=== PATIENT | male | born 1990 | race Caucasian/White ===

== ENCOUNTER 2016-10-10 13:54 | Emergency (ER) | payer SELFPAY ==
[2016-10-10 14:03] VITALS: BP 136/94
[2016-10-10] MEDS ORDERED: Sodium Chloride 0.9% 10 ML Syringe FLUSH PRN (14:31)
[2016-10-10] MEDS ORDERED: LORazepam 2 MG/ML MDV IVPUSH ONE (14:59)
[2016-10-10] MEDS ORDERED: Sodium Chloride 0.9% 1,000 ML IV ONE (15:01)
[2016-10-10] MEDS ORDERED: HYDROmorphone 0.5 MG/0.5 ML Syringe IVPUSH ONE (15:01)
[2016-10-10] MEDS ORDERED: Ondansetron 4 MG/2 ML SDV IVPUSH ONE (15:01)
[2016-10-10] MEDS ORDERED: Iopamidol 612 MG/ML 100 ML Bottle IVPUSH ONE (15:53)
[2016-10-10] MEDS ORDERED: Sodium Chloride 0.9% 10 ML Syringe FLUSH ONE (15:53)
[2016-10-10] MEDS ORDERED: Diatrizoate Meglumine/Diatrizoate Sodium 37% 120 ML Bottle PO ONE (15:53)
--- NOTE | 2016-10-10 16:37 | EDM.PDOC ---
ED HPI GI/ABDOMINAL - General Chief Complaint: Gastrointestinal Problem Stated Complaint: VOMITING Time Seen by Provider: 10/10/16 14:32 Source of Information: Reports: Patient History Limitations: Reports: No limitations - History of Present Illness INITIAL COMMENTS - FREE TEXT/NARRATIVE: Patient presents for evaluation and treatment of abdominal pain, nausea, vomiting and diarrhea. Patient reports that he woke this morning with abdominal pain. States it is located across the top of his abdomen and in the right lower quadrant. He describes it as a sharp sensation. Current symptoms include abdominal pain, nausea, vomiting, lightheadedness, chills and diarrhea. Had about 5 episodes of diarrhea today. No blood in the stool. States that his stool is brown and watery. Reports 3 episodes of vomiting today. He denies any fevers, dysuria, hematuria, melena or hematochezia. Patient denies any surgeries to his abdomen. Patient reports that as a child he had problems with reflux. He was placed on omeprazole. States that this does not feel similar. The patient reports a decreased appetite but states he was able to eat a fruit rope and a fruit snack today. He did vomit these up later. Location: [facility] - Related Data Allergies/ADRs: Allergies Allergy/AdvReac Type Severity Reaction Status Date / Time No Known Allergies Allergy Verified 01/27/14 12:12 Home Meds: Home Meds . [No Known Home Meds] 10/10/16 [History] Past Medical History - Past Health History Medical/Surgical History: Denies Medical/Surgical History Gastrointestinal History: Reports: GERD, Other (see below) Other Gastrointestinal History: lots of stomach issues over the years and ulcers Social & Family History - Tobacco Use Smoking Status *Q: Current Every Day Smoker Years of Tobacco use: 11 Packs/Tins Daily: 2 - Caffeine Use Caffeine Use: Reports: Soda - Recreational Drug Use Recreational Drug Use: No Recreational Drug Type: Reports: Marijuana/Hashish ED ROS GENERAL - Review of Systems Review Of Systems: See Below Constitutional: Reports: fever, chills, diaphoresis, decreased appetite GI/Abdominal: Reports: Abdominal pain, Diarrhea (x5 today), Nausea, Vomiting ( x3 today). Denies: Hematochezia, Melena : Reports: no symptoms, other (denies any groin pain or testicular pain or swelling). Denies: dysuria, hematuria ED EXAM, GI/ABD - Physical Exam Exam: See Below Exam Limited By: No limitations General Appearance: alert, WD/WN, no apparent distress Respiratory/Chest: no respiratory distress, lungs clear, normal breath sounds Cardiovascular: normal peripheral pulses, regular rate, rhythm, no murmur GI/Abdominal: normal bowel sounds, tenderness (periumbilical and RLQ), McBurney' s sign, other (no pain with heel percussion). No: rebound, psoas sign, obturator sign Neurological: alert, oriented, normal cognition Psychiatric: normal affect, normal mood Skin Exam: Warm, Dry, Normal color Course - Vital Signs Last Recorded V/S: Last Vital Signs Temp 36.9 C 10/10/16 14:01 Pulse 72 10/10/16 14:01 Resp 20 10/10/16 14:01 BP 136/94 H 10/10/16 14:01 Pulse Ox 100 10/10/16 14:01 - Orders/Labs/Meds Orders: Active Orders 24 hr Category Date Time Status Peripheral IV Care [RC] . DIRECTED Care 10/10/16 14:31 Active Abdomen Pelvis w Cont [CT] Stat Exams 10/10/16 14:31 Taken Sodium Chloride 0.9% [Saline Flush] Med 10/10/16 14:31 Active 10 ml FLUSH ASDIRECTED PRN Peripheral IV Insertion Adult [OM.PC] Routine Oth 10/10/16 14:31 Ordered Medication Orders Sodium Chloride (Saline Flush) 10 ml FLUSH ASDIRECTED PRN PRN Reason: Keep Vein Open Last Admin: 10/10/16 15:11 Dose: 10 ml Labs: Laboratory Tests 10/10/16 10/10/16 10/10/16 Range/Units 14:50 14:50 16:22 WBC 14.24 H (4.23-9.07) K/mm3 RBC 5.73 (4.63-6.08) M/mm3 Hgb 16.6 (13.7-17.5) gm/L Hct 48.1 (40.1-51.0) % MCV 83.9 (79.0-92.2) fl MCH 29.0 (25.7-32.2) pg MCHC 34.5 (32.2-35.5) g/dl RDW Std Deviation 40.3 (35.1-43.9) fL Plt Count 154 L (163-337) K/mm3 MPV 11.7 (9.4-12.3) fl Neutrophils % (Manual) 75 H (40-60) % Band Neutrophils % 11 H (0-10) % Lymphocytes % (Manual) 8 L (20-40) % Atypical Lymphs % 0 % Monocytes % (Manual) 4 (2-10) % Eosinophils % (Manual) 2 (0.8-7.0) % Basophils % (Manual) 0 L (0.2-1.2) Platelet Estimate Adequate Plt Morphology Comment Normal RBC Morph Comment Normal Sodium 138 (136-145) mEq/L Potassium 3.7 (3.5-5.1) mEq/L Chloride 103 (98-107) mEq/L Carbon Dioxide 27 (21-32) mEq/L Anion Gap 11.7 (5-15) BUN 13 (7-18) mg/dL Creatinine 1.1 (0.7-1.3) mg/dL Est Cr Clr Drug Dosing 97.93 mL/min Estimated GFR (MDRD) > 60 (>60) mL/min BUN/Creatinine Ratio 11.8 L (14-18) Glucose 109 H (74-106) mg/dL Calcium 9.3 (8.5-10.1) mg/dL Total Bilirubin 0.9 (0.2-1.0) mg/dL AST 17 (15-37) U/L ALT 21 (16-63) U/L Alkaline Phosphatase 78 (46-116) U/L C-Reactive Protein 0.2 (<1.0) mg/dL Total Protein 7.6 (6.4-8.2) g/dl Albumin 4.7 (3.4-5.0) g/dl Globulin 2.9 gm/dL Albumin/Globulin Ratio 1.6 (1-2) Lipase 94 (73-393) U/L Urine Color Yellow (Yellow) Urine Appearance Clear (Clear) Urine pH 6.5 (5.0-8.0) Ur Specific [place] 1.020 (1.005-1.030) Urine Protein Negative (Negative) Urine Glucose (UA) Negative (Negative) Urine Ketones Negative (Negative) Urine Occult Blood Negative (Negative) Urine Nitrite Negative (Negative) Urine Bilirubin Negative (Negative) Urine Urobilinogen 0.2 (0.2-1.0) Ur Leukocyte Esterase Negative (Negative) Urine RBC Not seen (0-5) /hpf Urine WBC 0-5 (0-5) /hpf Ur Epithelial Cells Not Reportable Ur Squamous Epith Cells 0-5 (0-5) /hpf Urine Bacteria Not seen (FEW) /hpf Urine Mucus Not seen (FEW) /hpf Meds: Medications Generic Name Dose Route Start Last Admin Trade Name Freq PRN Reason Stop Dose Admin Sodium Chloride 10 ml 10/10/16 14:31 10/10/16 15:11 Saline Flush FLUSH 10 ml ASDIRECTED PRN Administration Keep Vein Open Discontinued Medications Generic Name Dose Route Start Last Admin Trade Name Freq PRN Reason Stop Dose Admin Diatrizoate Meglum/Diatrizoate Sod 90 ml 10/10/16 15:53 10/10/16 16:12 Gastrografin 37% PO 10/10/16 15:54 90 ml ONETIME ONE Administration Hydromorphone HCl 0.5 mg 10/10/16 15:01 10/10/16 15:06 Dilaudid IVPUSH 10/10/16 15:02 0.5 mg ONETIME ONE Administration Sodium Chloride 1,000 mls @ 999 mls/hr 10/10/16 15:01 10/10/16 15:06 Normal Saline IV 10/10/16 16:01 999 mls/hr ONETIME ONE Administration Iopamidol 100 ml 10/10/16 15:53 10/10/16 16:12 Isovue-300 (61%) IVPUSH 10/10/16 15:54 100 ml ONETIME ONE Administration Lorazepam 0.5 mg 10/10/16 14:59 Ativan IVPUSH 10/10/16 15:00 ONETIME ONE Ondansetron HCl 4 mg 10/10/16 15:01 10/10/16 15:06 Zofran IVPUSH 10/10/16 15:02 4 mg ONETIME ONE Administration Sodium Chloride 10 ml 10/10/16 15:53 10/10/16 16:12 Saline Flush FLUSH 10/10/16 15:54 10 ml ONETIME ONE Administration - Radiology Interpretation Free Text/Narrative:: CT of the abdomen and pelvis impression per Vrad: The stomach is distended with contrast material. Poor visibility of the RLQ. There are a number of small mesenteric nodes, nonspecific. CT Results Date: 10/10/16 - Re-Assessments/Exams Free Text/Narrative Re-Assessment/Exam: 10/10/16 17:03 Labs returned. WBC is elevated at 14.24, hgb is 16.6 and plts are 154 lipase is normal at 94 sodium is 138, potassium is 3.7 and chloride is 103. Anion gap is 11.7. Glucose is 109. CRP is normal at 0.2 UA is negative for leuks, nitrites, glucose, blood and ketones. I discussed the labs and Ct with the patient. Appears to be gastroenteritis, likely viral. Recommend clear liquids today and a bland diet as tolerated tomorrow. Will plan to discharge home. Discharge instructions as documented. Departure - Departure Time of Disposition: 17:04 Disposition: Home, Self-Care 01 Condition: fair Clinical Impression: Gastroenteritis Instructions: Viral Gastroenteritis, Adult, [id number] Referrals: PCP,None [Primary Care Provider] - Shen Durán [Physician] - Forms: ED Department Discharge Additional Instructions: Rest. Clear liquids today. may advance to a bland diet as tolerated tomorrow. Hitchcock diet recommendations include bread, rice, soup broth, egg whites, Etc. Expect your illness to last 1 to 3 days. Should your symptoms persist beyond this I recommend you follow up with family medicine. Recommend or Ignacio Wagner at the [facility]. Call [phone] to schedule with one of them. I recommend your start yogurt or probiotic. This will help put some good bacteria back into your GI system. please return to the ER should your symptoms change or worsen. - My Orders Last 24 Hours: My Active Orders 10/10/16 14:31 Peripheral IV Care [RC] . DIRECTED Abdomen Pelvis w Cont [CT] Stat Sodium Chloride 0.9% [Saline Flush] 10 ml FLUSH ASDIRECTED PRN Peripheral IV Insertion Adult [OM.PC] Routine - Assessment/Plan Last 24 Hours: My Active Orders 10/10/16 14:31 Peripheral IV Care [RC] . DIRECTED Abdomen Pelvis w Cont [CT] Stat Sodium Chloride 0.9% [Saline Flush] 10 ml FLUSH ASDIRECTED PRN Peripheral IV Insertion Adult [OM.PC] Routine
--- NOTE | 2016-10-11 13:54 | CT ---
CT abdomen and pelvis Technique: Multiple axial sections were obtained from above the dome of the diaphragm inferiorly through the pubic symphysis. Intravenous and oral contrast has been given. Delayed images were also obtained through the bladder. Comparison: No previous abdominal imaging. Findings: Visualized lung bases are clear. Liver shows no focal parenchymal abnormality. Gallbladder shows no calcified gallstones. Spleen appears within normal limits. Adrenal glands show no nodule. Kidneys show symmetric contrast enhancement without hydronephrosis or mass. Pancreas is within normal limits. Fat planes are not well seen within the abdomen due to patient body habitus. Several mesenteric lymph nodes are seen believed to be within normal limits. Appendix cannot be definitely visualized. No enlarged tubular structures are identified. There is increased fluid seen within the rectum. No additional bowel abnormality is appreciated. Delayed images show contrast within the bladder. No free fluid or discrete inflammatory changes seen. Bone window settings were reviewed which appear within normal limits for the patient's age. Impression: 1. Difficult to interpret study due to patient body habitus causing lack of intra-abdominal fat. 2. Appendix not definitely visualized. No enlarged tubular structure seen within the right lower abdomen. Early appendicitis could easily be missed. 3. Nonspecific fluid within the rectum. Please correlate if patient has any symptoms of diarrhea. Diagnostic code #3 I agree with preliminary report issued by [employer] (report finalized on 10/10/16, 5:33 PM Central Time)
== END 2016-10-10 17:19 | disposition home or self-care (01) ==
LOC: JD.ED 13:54
DX: K52.9 Noninfective gastroenteritis and colitis, unspecified (principal); K21.9 Gastro-esophageal reflux disease without esophagitis; F17.200 Nicotine dependence, unspecified, uncomplicated
CPT/HCPCS: 36415; 74177; 80053; 81001; 83690; 85025; 86140; J1170; J2405; J7040; J7050; Q9963; Q9967; 96361; 96374; 96375; 99284; 99284-25

== ENCOUNTER 2019-05-25 13:22 | Emergency (ER) | payer BC, MEDICAID ==
[2019-05-25 13:40] VITALS: BP 139/96; PULSE 91
[2019-05-25] MEDS ORDERED: LORazepam 2 MG/ML SDV IVPUSH ONE (13:47)
--- NOTE | 2019-05-25 14:02 | EDM.PDOC ---
ED HPI GENERAL MEDICAL PROBLEM - General Chief Complaint: Abdominal Pain Stated Complaint: ABDOMINAL PAIN AND BODY ACHES Time Seen by Provider: 05/25/19 13:30 - History of Present Illness INITIAL COMMENTS - FREE TEXT/NARRATIVE: 28-year-old male presents emergency room with abdominal pain and he is very anxious.. Last night he found a pill as he was leaving [facility] and he picked it up he looked it up in thought it was naltrexone. At about 11:30 this morning he took a fourth of this and almost immediately developed significant abdominal discomfort he doesn't describe it as a pain but more of a sucking feeling on his abdomen, and he is getting increasingly restless and anxious area. Patient denies any other medical problems he says he doesn't go to doctors so he doesn' t have any medical problems. The patient sounds like he could be a habitual opioid user he takes 5 or so hydrocodone a day when he can get a hold of them. He also admits to smoking marijuana denies alcohol use hasn't used alcohol in over 5 years. Abdomen Pain Score (Numeric/FACES): 8 - Related Data Allergies Allergy/AdvReac Type Severity Reaction Status Date / Time No Known Allergies Allergy Verified 01/27/14 12:12 Home Meds: Home Meds . [No Known Home Meds] 10/10/16 [History] Past Medical History - Past Health History Medical/Surgical History: Denies Medical/Surgical History Gastrointestinal History: Reports: GERD, Other (See Below) Other Gastrointestinal History: lots of stomach issues over the years and ulcers Social & Family History - Family History Family Medical History: Noncontributory - Tobacco Use Smoking Status *Q: Current Every Day Smoker Years of Tobacco use: 12 Packs/Tins Daily: 1 - Caffeine Use Caffeine Use: Reports: None - Recreational Drug Use Recreational Drug Use: Yes Drug Use in Last 12 Months: Yes Recreational Drug Type: Reports: Marijuana/Hashish, Vicodin ED ROS GENERAL - Review of Systems Review Of Systems: See Below Constitutional: Reports: No Symptoms HEENT: Reports: No Symptoms Respiratory: Reports: No Symptoms Cardiovascular: Reports: No Symptoms GI/Abdominal: Reports: Abdominal Pain. Denies: Constipation, Diarrhea, Nausea, Vomiting : Reports: No Symptoms Musculoskeletal: Reports: No Symptoms Skin: Reports: No Symptoms Psychiatric: Reports: Agitation, Anxiety ED EXAM, GENERAL - Physical Exam Exam: See Below Exam Limited By: No Limitations General Appearance: Alert, Mild Distress (Quite anxious and possibly a little agitated) Head: Atraumatic, Normocephalic Neck: Normal Inspection, Supple, Non-Tender, Full Range of Motion. No: Lymphadenopathy (L), Lymphadenopathy (R) Respiratory/Chest: No Respiratory Distress, Lungs Clear, Normal Breath Sounds Cardiovascular: Regular Rate, Rhythm, No Edema, No Murmur GI/Abdominal: Normal Bowel Sounds, Other (His abdominal pain is her discomfort is not worsened at all with palpation he has no rigidity rebound or guarding noted however he points to the periumbilical area as to where it's hurting the worst) Course - Vital Signs Last Recorded V/S: Last Vital Signs Temp 37.1 C 05/25/19 13:34 Pulse 91 05/25/19 13:34 Resp 20 05/25/19 13:34 BP 139/96 H 05/25/19 13:34 Pulse Ox 100 05/25/19 13:34 - Orders/Labs/Meds Orders: Active Orders 24 hr Category Date Time Status LORazepam [Ativan] Med 05/25/19 15:39 Once 1 mg PO ONETIME ONE Lactated Ringers [Ringers, Lactated] 1,000 ml Med 05/25/19 14:45 Active IV ASDIRECTED Medication Orders Lactated Ringer's (Ringers, Lactated) 1,000 mls @ 125 mls/hr IV ASDIRECTED VARGAS Last Admin: 05/25/19 14:45 Dose: 125 mls/hr Lorazepam (Ativan) 1 mg PO ONETIME ONE Stop: 05/25/19 15:40 Labs: Laboratory Tests 05/25/19 05/25/19 05/25/19 Range/Units 13:30 13:30 14:03 WBC 7.52 (4.23-9.07) K/mm3 RBC 5.55 (4.63-6.08) M/mm3 Hgb 16.1 (13.7-17.5) gm/dl Hct 46.3 (40.1-51.0) % MCV 83.4 (79.0-92.2) fl MCH 29.0 (25.7-32.2) pg MCHC 34.8 (32.2-35.5) g/dl RDW Std Deviation 40.1 (35.1-43.9) fL Plt Count 194 (163-337) K/mm3 MPV 11.6 (9.4-12.3) fl Neutrophils % (Manual) 79 H (40-60) % Band Neutrophils % 1 (0-10) % Lymphocytes % (Manual) 13 L (20-40) % Atypical Lymphs % 0 % Monocytes % (Manual) 6 (2-10) % Eosinophils % (Manual) 1 (0.8-7.0) % Basophils % (Manual) 0 L (0.2-1.2) Platelet Estimate Adequate RBC Morph Comment Not Reportable Sodium (136-145) mEq/L Potassium (3.5-5.1) mEq/L Chloride (98-107) mEq/L Carbon Dioxide (21-32) mEq/L Anion Gap (5-15) BUN (7-18) mg/dL Creatinine (0.7-1.3) mg/dL Est Cr Clr Drug Dosing mL/min Estimated GFR (MDRD) (>60) mL/min BUN/Creatinine Ratio (14-18) Glucose (74-106) mg/dL Calcium (8.5-10.1) mg/dL Total Bilirubin (0.2-1.0) mg/dL AST (15-37) U/L ALT (16-63) U/L Alkaline Phosphatase (46-116) U/L Total Protein (6.4-8.2) g/dl Albumin (3.4-5.0) g/dl Globulin gm/dL Albumin/Globulin Ratio (1-2) Urine Color Yellow (Yellow) Urine Appearance Clear (Clear) Urine pH 7.0 (5.0-8.0) Ur Specific [place] 1.015 (1.005-1.030) Urine Protein Negative (Negative) Urine Glucose (UA) Negative (Negative) Urine Ketones Negative (Negative) Urine Occult Blood Negative (Negative) Urine Nitrite Negative (Negative) Urine Bilirubin Negative (Negative) Urine Urobilinogen 0.2 (0.2-1.0) Ur Leukocyte Esterase Negative (Negative) Urine RBC 0-5 (0-5) /hpf Urine WBC Not seen (0-5) /hpf Ur Squamous Epith Cells 0-5 (0-5) /hpf Urine Bacteria Few (FEW) /hpf Urine Mucus Moderate H (FEW) /hpf Urine Opiates Screen Presumptive positive H (PKIYSS=692) Ur Buprenorphine Scrn Negative (CUTOFF=10) Ur Oxycodone Screen Negative (JQU4FB=625) Urine Methadone Screen Negative (KSS7EG=153) Ur Propoxyphene Screen Negative (AHBTOW=563) Ur Barbiturates Screen Negative (HUFBUV=340) Ur Tricyclics Screen Negative (RECDZY=731) Ur Phencyclidine Scrn Negative (CUTOFF=25) Ur Amphetamine Screen Negative (FFJKQE=635) U Methamphetamines Scrn Negative (EMMQAV=026) U Benzodiazepines Scrn Negative (ESXXXX=292) U Cocaine Metab Screen Negative (ILVGPF=499) U Marijuana (THC) Screen Negative (CUTOFF=50) 05/25/19 Range/Units 14:03 WBC (4.23-9.07) K/mm3 RBC (4.63-6.08) M/mm3 Hgb (13.7-17.5) gm/dl Hct (40.1-51.0) % MCV (79.0-92.2) fl MCH (25.7-32.2) pg MCHC (32.2-35.5) g/dl RDW Std Deviation (35.1-43.9) fL Plt Count (163-337) K/mm3 MPV (9.4-12.3) fl Neutrophils % (Manual) (40-60) % Band Neutrophils % (0-10) % Lymphocytes % (Manual) (20-40) % Atypical Lymphs % % Monocytes % (Manual) (2-10) % Eosinophils % (Manual) (0.8-7.0) % Basophils % (Manual) (0.2-1.2) Platelet Estimate RBC Morph Comment Sodium 142 (136-145) mEq/L Potassium 3.3 L (3.5-5.1) mEq/L Chloride 106 (98-107) mEq/L Carbon Dioxide 24 (21-32) mEq/L Anion Gap 15.3 H (5-15) BUN 11 (7-18) mg/dL Creatinine 1.0 (0.7-1.3) mg/dL Est Cr Clr Drug Dosing 102.31 mL/min Estimated GFR (MDRD) > 60 (>60) mL/min BUN/Creatinine Ratio 11.0 L (14-18) Glucose 107 H (74-106) mg/dL Calcium 9.7 (8.5-10.1) mg/dL Total Bilirubin 0.5 (0.2-1.0) mg/dL AST 16 (15-37) U/L ALT 23 (16-63) U/L Alkaline Phosphatase 90 (46-116) U/L Total Protein 7.8 (6.4-8.2) g/dl Albumin 4.7 (3.4-5.0) g/dl Globulin 3.1 gm/dL Albumin/Globulin Ratio 1.5 (1-2) Urine Color (Yellow) Urine Appearance (Clear) Urine pH (5.0-8.0) Ur Specific [place] (1.005-1.030) Urine Protein (Negative) Urine Glucose (UA) (Negative) Urine Ketones (Negative) Urine Occult Blood (Negative) Urine Nitrite (Negative) Urine Bilirubin (Negative) Urine Urobilinogen (0.2-1.0) Ur Leukocyte Esterase (Negative) Urine RBC (0-5) /hpf Urine WBC (0-5) /hpf Ur Squamous Epith Cells (0-5) /hpf Urine Bacteria (FEW) /hpf Urine Mucus (FEW) /hpf Urine Opiates Screen (QXACTS=892) Ur Buprenorphine Scrn (CUTOFF=10) Ur Oxycodone Screen (BTS6DP=482) Urine Methadone Screen (HMD4DP=998) Ur Propoxyphene Screen (LNHCJH=816) Ur Barbiturates Screen (PMAOLA=264) Ur Tricyclics Screen (TTFMDV=612) Ur Phencyclidine Scrn (CUTOFF=25) Ur Amphetamine Screen (CQYTBL=088) U Methamphetamines Scrn (ZYRLAH=885) U Benzodiazepines Scrn (WBIQWL=690) U Cocaine Metab Screen (EYXXNJ=356) U Marijuana (THC) Screen (CUTOFF=50) Meds: Medications Generic Name Dose Route Start Last Admin Trade Name Freq PRN Reason Stop Dose Admin Lactated Ringer's 1,000 mls @ 125 mls/hr 05/25/19 14:45 05/25/19 14:45 Ringers, Lactated IV 125 mls/hr ASDIRECTED VARGAS Administration Lorazepam 1 mg 05/25/19 15:39 Ativan PO 05/25/19 15:40 ONETIME ONE Discontinued Medications Generic Name Dose Route Start Last Admin Trade Name Freq PRN Reason Stop Dose Admin Lorazepam 1 mg 05/25/19 13:47 05/25/19 14:06 Ativan IVPUSH 05/25/19 13:48 1 mg ONETIME ONE Administration Lorazepam 1 mg 05/25/19 14:37 05/25/19 15:39 Ativan IVPUSH 05/25/19 14:38 Not Given ONETIME ONE Potassium Chloride 40 meq 05/25/19 15:13 05/25/19 15:21 Klor-Con M20 PO 05/25/19 15:14 40 meq ONETIME ONE Administration - Re-Assessments/Exams Free Text/Narrative Re-Assessment/Exam: 05/25/19 15:39 Patient is doing much better after receiving a milligram of Ativan IV labs reviewed his potassium is a little low he received some oral potassium here in the department at this time the patient is pretty insistent on going home his anxiety is returning a little bit will given a milligram of oral Ativan and then discharge at his insistence. Departure - Departure Time of Disposition: 15:40 Disposition: Home, Self-Care 01 Clinical Impression: Drug interaction, Drug abuse and dependence - Discharge Information Referrals: PCP,None [Primary Care Provider] - Forms: ED Department Discharge Additional Instructions: Return to the emergency room with any questions problems worsening symptoms. Establish with a local physician. Give strong consideration to getting help for your addictions. Sepsis Event Note - Evaluation Sepsis Screening Result: No Definite Risk - Focused Exam Vital Signs: Vital Signs Temp Pulse Resp BP Pulse Ox 05/25/19 13:34 37.1 C 91 20 139/96 H 100 Date Exam was Performed: 05/25/19 Time Exam was Performed: 15:39 - My Orders Last 24 Hours: My Active Orders 05/25/19 14:45 Lactated Ringers [Ringers, Lactated] 1,000 ml IV ASDIRECTED 05/25/19 15:39 LORazepam [Ativan] 1 mg PO ONETIME ONE - Assessment/Plan Last 24 Hours: My Active Orders 05/25/19 14:45 Lactated Ringers [Ringers, Lactated] 1,000 ml IV ASDIRECTED 05/25/19 15:39 LORazepam [Ativan] 1 mg PO ONETIME ONE
[2019-05-25] MEDS ORDERED: Lactated Ringers 1,000 ML IV SCH (14:45)
[2019-05-25] MEDS: LORazepam 2 MG/ML SDV IVPUSH ONE ×2 (15:05→15:39)
[2019-05-25] MEDS ORDERED: Potassium Chloride 20 MEQ Tab.ER PO ONE (15:13)
[2019-05-25] MEDS ORDERED: LORazepam 1 MG Tab PO ONE (15:39)
== END 2019-05-25 15:55 | disposition home or self-care (01) ==
LOC: JD.ED 13:22
DX: R10.33 Periumbilical pain (principal); T50.915A Adverse effect of multiple unspecified drugs, medicaments and biological substances, initial encounter; F11.20 Opioid dependence, uncomplicated; F19.20 Other psychoactive substance dependence, uncomplicated; F12.20 Cannabis dependence, uncomplicated; F17.210 Nicotine dependence, cigarettes, uncomplicated
CPT/HCPCS: 36415; 80053; 80306; 81001; 85007; 85027; 96361; 96374; 99284; A9270; J2060; J7120; 99283

== ENCOUNTER 2020-01-22 14:56 | Emergency (ER) | payer MEDICAID ==
[2020-01-22 15:20] VITALS: BP 144/82; PULSE 65
--- NOTE | 2020-01-22 15:55 | EDM.PDOC ---
ED HPI GENERAL MEDICAL PROBLEM - General Chief Complaint: Lower Extremity Injury/Pain Stated Complaint: RT FOOT INJURY Time Seen by Provider: 01/22/20 15:22 Source of Information: Reports: Patient, RN Notes Reviewed - History of Present Illness INITIAL COMMENTS - FREE TEXT/NARRATIVE: 29 yr old male injured R foot last evening. Onset of pain, swelling right away. Swelling is worse this AM. Has to walk on heel of foot. no other area of injury. Foot Pain Score (Numeric/FACES): 3 - Related Data Allergies Allergy/AdvReac Type Severity Reaction Status Date / Time No Known Allergies Allergy Verified 01/27/14 12:12 Home Meds: Home Meds . [No Known Home Meds] 10/10/16 [History] Past Medical History - Past Health History Medical/Surgical History: Denies Medical/Surgical History Gastrointestinal History: Reports: GERD, Other (See Below) Other Gastrointestinal History: lots of stomach issues over the years and ulcers Social & Family History - Family History Family Medical History: Noncontributory - Tobacco Use Smoking Status *Q: Current Every Day Smoker Years of Tobacco use: 17 Packs/Tins Daily: 2 - Caffeine Use Caffeine Use: Reports: None Review of Systems - Review of Systems Review Of Systems: See Below Constitutional: Reports: No Symptoms Mouth/Throat: Reports: No Symptoms Respiratory: Denies: Shortness of Breath Cardiovascular: Denies: Chest Pain GI/Abdominal: Denies: Abdominal Pain, Nausea, Vomiting Musculoskeletal: Reports: Foot Pain Skin: Reports: Bruising (R foot) ED EXAM, GENERAL - Physical Exam Exam: See Below General Appearance: Alert, No Apparent Distress Head: Atraumatic Neck: Supple Respiratory/Chest: No Respiratory Distress Cardiovascular: Regular Rate, Rhythm Extremities: Joint Swelling (moderate swelling and bruising of R lateral foot, mild tenderness lateral mid foot, ankel nontender and without swelling) Skin Exam: Warm, Dry, Normal Color, Ecchymosis (R foot) Course - Vital Signs Last Recorded V/S: Last Vital Signs Temp 98.6 F 01/22/20 15:18 Pulse 65 01/22/20 15:18 Resp 16 01/22/20 15:18 BP 144/82 H 01/22/20 15:18 Pulse Ox 98 01/22/20 15:18 - Orders/Labs/Meds Orders: Active Orders 24 hr Category Date Time Status Durable Medical Equipment for Discharge [DME for Oth 01/22/20 16:50 Ordered Discharge] [COMM] Stat - Re-Assessments/Exams Free Text/Narrative Re-Assessment/Exam: 01/22/20 15:54 X rays of foot show nondisplaced fx proximal 5 metarsal. He has a very large amt of swelling as documented so will treat with post. fiberglass splint, have him use crutches non wt bearing for now, discharge instr. as documented. Departure - Departure Time of Disposition: 16:04 Disposition: Home, Self-Care 01 Condition: Fair Clinical Impression: Metatarsal fracture Qualifiers: Encounter type: initial encounter Metatarsal bone: fifth Fracture type: closed Fracture alignment: nondisplaced Laterality: right Qualified Code(s): S92.354A - Nondisplaced fracture of fifth metatarsal bone, right foot, initial encounter for closed fracture - Discharge Information Instructions: Metatarsal Fracture With Rehab-SportsMed Referrals: PCP,None [Primary Care Provider] - Forms: ED Department Discharge Additional Instructions: fiberglass splint. Ice packs and elevation as discussed to help get the swelling down. Crutches. No weight bearing for now. See [facility] later this week or early next week. Call [phone] for appointment. Tylenol q 6 to 8 hr as needed for discomfort. Sepsis Event Note (ED) - Evaluation Sepsis Screening Result: No Definite Risk - Focused Exam Vital Signs: Vital Signs Temp Pulse Resp BP Pulse Ox 01/22/20 15:18 98.6 F 65 16 144/82 H 98 - My Orders Last 24 Hours: My Active Orders 01/22/20 16:50 Durable Medical Equipment for Discharge [DME for Discharge] [COMM] Stat - Assessment/Plan Last 24 Hours: My Active Orders 01/22/20 16:50 Durable Medical Equipment for Discharge [DME for Discharge] [COMM] Stat
--- NOTE | 2020-01-22 16:14 | CR ---
Right foot: 4 views of the right foot were obtained. Comparison: No prior foot exam. Joint spaces are preserved. Fracture seen within the base of the fifth metatarsal which shows no displacement. No additional fracture or other bony abnormality is appreciated. Impression: 1. Nondisplaced fracture within the base of the right fifth metatarsal. 2. Right foot exam is otherwise unremarkable. Diagnostic code #3 Study was dictated in MDT
== END 2020-01-22 17:05 | disposition home or self-care (01) ==
LOC: JD.ED 14:56
DX: S92.354A Nondisplaced fracture of fifth metatarsal bone, right foot, initial encounter for closed fracture (principal); F17.210 Nicotine dependence, cigarettes, uncomplicated; W22.8XXA Striking against or struck by other objects, initial encounter; Y93.02 Activity, running
CPT/HCPCS: 29515; 73630-26-RT; 73630-RT; 99283-25

== ENCOUNTER 2024-12-28 22:37 | Emergency (ER) | payer MEDICAID ==
[2024-12-28 23:23] LABS: BASOPHILS ABSOLUTE AUTO 0.0 K/mm3 (0.0-0.2); BASOPHILS PERCENT AUTO 0.4 % (0.0-1.0); EOSINOPHILS ABSOLUTE AUTO 0.1 K/mm3 (0.0-0.4); EOSINOPHILS PERCENT AUTO 2.6 % (0.0-6.0); IMMATURE GRAN ABSOLUTE AUTO 0.01 K/mm3 (0.00-0.05); IMMATURE GRAN PERCENT AUTO 0.2 % (0.0-0.4); LYMPHOCYTES ABSOLUTE AUTO 1.9 K/mm3 (1.0-4.8); LYMPHOCYTES PERCENT AUTO 40.2 % (24.0-44.0); MEAN PLATELET VOLUME 10.5 fl (9.4-12.4); MONOCYTES ABSOLUTE AUTO 0.4 K/mm3 (0.0-0.8); MONOCYTES PERCENT AUTO 9.3 % (0.0-8.0); NEUTROPHILS ABSOLUTE AUTO 2.2 K/mm3 (1.8-7.7); NEUTROPHILS PERCENT AUTO 47.3 % (41.0-71.0); NRBC ABSOLUTE 0.00 (0.00-0.02); NRBC PERCENT 0.0 % (0.0-0.2); PLATELET COUNT,PLT 197 K/mm3 (150-400); RED BLOOD CELL COUNT 5.22 M/mm3 (4.52-5.90); WHITE BLOOD CELL COUNT,WBC 4.63 K/mm3 (3.9-11.3)
[2024-12-28 23:46] LABS: A/G RATIO 1.3 (1-2); ALANINE AMINOTRANSFERASE,ALT 24.0 U/L (16-63); ASPARTATE AMNIOTRANSFERASE,AST 15.0 U/L (15-37); BILIRUBIN TOTAL 0.5 mg/dL (0.2-1.0); BLOOD UREA NITROGEN,BUN 12.0 mg/dL (7-18); CARBON DIOXIDE,CO2 28.0 mEq/L (21-32); CHLORIDE,CL 103.0 mEq/L (98-107); CREATININE 1.0 mg/dL (0.7-1.3); EST CRCL DRUG DOSING (CG) 108.85 mL/min; ESTIMATED GFR 101.0 mL/min (>60); GLUCOSE RANDOM 109.0 mg/dL (70-99); POTASSIUM,K 4.0 mEq/L (3.5-5.1); PROTEIN TOTAL,TP 6.9 g/dl (6.4-8.2); SODIUM,NA 140.0 mEq/L (136-145); TROPONIN I HIGH SENSITIVITY 8.0 pg/mL (<=76)
[2024-12-29 00:50] VITALS: BP 130/85; PULSE 61
== END 2024-12-29 00:40 | disposition home or self-care (01) ==
LOC: JD.ED 22:37
DX: I10 Essential (primary) hypertension (principal); F17.210 Nicotine dependence, cigarettes, uncomplicated
CPT/HCPCS: 36415; 80053; 83735; 84484; 85025; 93005; 99284